=== PATIENT | female | born 1975 | race Caucasian/White ===

== ENCOUNTER 2016-08-09 09:28 | Emergency (ER) | payer OTHER ==
[~2016-08-09] VITALS: Ht 167.6 cm; Wt 75.0 kg
[2016-08-09 09:32] VITALS: BP 138/84; PULSE 88; RESP 16; TEMP 98.2; O2SAT 99
--- NOTE | 2016-08-09 09:49 | PD ---
HPI Chief Complaint: Related Problem Time Seen by Provider: 09:39 Travel History International Travel<30 days: No Contact w/Intl Traveler<30days: No Traveled to known affect area: No History of Present Illness HPI 41-year-old female 1 para 0, 2 months by date, complains of pelvic cramping and vaginal spotting. Patient states that she started having intermittent abdominal cramping and vaginal bleeding for the past 3 weeks. Patient states that she made appointment with OB physician however has not seen the physician. Patient denies any chest pain or shortness of breath. Patient denies any nausea vomiting diarrhea. Patient denies any dysuria or frequency. PFSH Past Medical History ?: Social History Tobacco Use: No Allergies-Medications (Allergen,Severity, Reaction): Coded Allergies: No Known Allergies (Unverified , 08/09/16) Reported Meds & Prescriptions Reported Meds & Active Scripts Active No Active Prescriptions or Reported Medications Review of Systems General / Constitutional: No: Fever Eyes: No: Visual changes HENT: No: Headaches Cardiovascular: No: Chest Pain or Discomfort Respiratory: No: Shortness of Breath Gastrointestinal: No: Abdominal Pain Genitourinary: Positive: Pelvic Pain, Vaginal Bleeding, No: Dysuria Musculoskeletal: No: Pain Skin: No Rash Neurologic: No: Weakness Psychiatric: No: Depression Endocrine: No: Polydipsia Hematologic/Lymphatic: No: Easy Bruising Physical Exam Narrative GENERAL: Well-nourished, well-developed patient. SKIN: Focused skin assessment warm/dry. HEAD: Normocephalic. EYES: No scleral icterus. No injection or drainage. NECK: Supple, trachea midline. No JVD or lymphadenopathy. CARDIOVASCULAR: Regular rate and rhythm without murmurs, gallops, or rubs. RESPIRATORY: Breath sounds equal bilaterally. No accessory muscle use. GASTROINTESTINAL: Abdomen soft, non-tender, nondistended. MUSCULOSKELETAL: No cyanosis, or edema. BACK: Nontender without obvious deformity. No CVA tenderness. 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 Data Data Last Documented VS Vital Signs Date Time Temp Pulse Resp B/P Pulse Ox O2 Delivery O2 Flow Rate FiO2 08/09/16 09:39 16 08/09/16 09:32 98.2 88 138/84 99 Orders Beta Hcg (Quant/Titer) (08/09/16 09:43) Complete Blood Count With Diff (08/09/16 09:43) Basic Metabolic Panel (Bmp) (08/09/16 09:43) Complete Rh (08/09/16 09:43) Urinalysis - C+S If Indicated (08/09/16 09:43) Iv Access Insert/Monitor (08/09/16 09:43) Gc And Chlamydia Pcr (08/09/16 09:47) Wet Prep Profile (08/09/16 09:47) Us Pelvis (Ques Pr/Ect)W Trans (08/09/16 09:50) Rhogam Only (08/09/16 12:35) Labs Laboratory Tests Test 08/09/16 08/09/16 09:45 12:35 White Blood Count 10.0 TH/MM3 Red Blood Count 5.49 MIL/MM3 Hemoglobin 13.6 GM/DL Hematocrit 41.0 % Mean Corpuscular Volume 74.7 FL Mean Corpuscular Hemoglobin 24.8 PG Mean Corpuscular Hemoglobin 33.2 % Concent Red Cell Distribution Width 13.8 % Platelet Count 205 TH/MM3 Mean Platelet Volume 7.9 FL Neutrophils (%) (Auto) 65.6 % Lymphocytes (%) (Auto) 27.7 % Monocytes (%) (Auto) 5.6 % Eosinophils (%) (Auto) 0.6 % Basophils (%) (Auto) 0.5 % Neutrophils # (Auto) 6.6 TH/MM3 Lymphocytes # (Auto) 2.8 TH/MM3 Monocytes # (Auto) 0.6 TH/MM3 Eosinophils # (Auto) 0.1 TH/MM3 Basophils # (Auto) 0.1 TH/MM3 CBC Comment DIFF FINAL Differential Comment Urine Color YELLOW Urine Turbidity CLEAR Urine pH 7.0 Urine Specific [place] 1.012 Urine Protein NEG mg/dL Urine Glucose (UA) NEG mg/dL Urine Ketones NEG mg/dL Urine Occult Blood NEG Urine Nitrite NEG Urine Bilirubin NEG Urine Urobilinogen LESS THAN 2.0 MG/DL Urine Leukocyte Esterase SMALL Urine WBC LESS THAN 1 /hpf Urine Squamous Epithelial <1 /hpf Cells Microscopic Urinalysis Comment CULT NOT INDICATED Sodium Level 137 MEQ/L Potassium Level 3.6 MEQ/L Chloride Level 100 MEQ/L Carbon Dioxide Level 27.0 MEQ/L Anion Gap 10 MEQ/L Blood Urea Nitrogen 8 MG/DL Creatinine 0.66 MG/DL Estimat Glomerular Filtration 100 ML/MIN Rate Random Glucose 121 MG/DL Calcium Level 9.2 MG/DL Human Chorionic Gonadotropin, [address] MIU/ML Quant Blood Type B NEGATIVE Rho(D) Type NEGATIVE Chlamydia trachomatis DNA NOT DETECTED (PCR) Neisseria gonorrhoeae DNA NOT DETECTED (PCR) Blood Bank Comment MDM Medical Decision Making Medical Screen Exam Complete: Yes Emergency Medical Condition: Yes Interpretation(s) 10:39 AM. CBC within normal limit. BMP within normal limit. UA is negative. 1347 PM. Last Impressions Pelvis Ultrasound 08/09/16 0950 Signed Impressions: Service Date/Time: Tuesday, August 09, 2016 12:04 - CONCLUSION: 1. There is a single intrauterine gestation identified with estimated age of 6 weeks and 4 days. Normal heart rate of 176 beats per minute is documented. 2. Dominant cystic lesion in the left ovary measuring 2.1 cm. 3. There are 2 uterine fibroids identified measuring up to 11 mm. Manuelito Dillon MD 1340 7 PM. Beta HCG 08619. Differential Diagnosis Differential diagnosis including cervicitis, threatened AB, incomplete AB, completed AB, ectopic . Narrative Course 41-year-old female with pelvic pain and vaginal spotting. Patient is 2 months by date. Patient's blood type B-. RhoGAM given. Diagnosis Primary Impression: Vaginal bleeding during , antepartum Patient Instructions: General Instructions Additional Instructions: Continue with vitamins. Follow-up with personal physician. Return if increased abdominal pain, pelvic pain, vaginal bleeding. Med/Other Pt SpecificInfo: No Meds Exist/No RX given Scripts No Active Prescriptions or Reported Meds Disposition: 01 DISCHARGE HOME Condition: Stable Richie Blunt MD August 09, 2016 09:49
[2016-08-09 10:06] LABS: AUTOMATED NEUTROPHIL # 6.6 TH/MM3 (1.8-7.7); BASOPHIL # 0.1 TH/MM3 (0-0.2); BASOPHIL % 0.5 % (0.0-2.0); EOSINOPHIL # 0.1 TH/MM3 (0-0.4); EOSINOPHIL % 0.6 % (0.0-4.0); HEMO FLAGS DIFF FINAL; LYMPH % 27.7 % (9.0-44.0); LYMPHOCYTE # 2.8 TH/MM3 (1.0-4.8); MEAN CELL VOLUME 74.7 FL (80.0-100.0); MEAN CORPUSCULAR HEMOGLOBIN 24.8 PG (27.0-34.0); MEAN CORPUSCULAR HGB CONC 33.2 % (32.0-36.0); MONO % 5.6 % (0.0-8.0); NEUT % 65.6 % (16.0-70.0); PLATELET COUNT 205 TH/MM3 (150-450); RED BLOOD COUNT 5.49 MIL/MM3 (4.00-5.30); RED CELL DISTRIBUTION WIDTH 13.8 % (11.6-17.2)
[2016-08-09 10:09] LABS: BLOOD, URINE NEG (NEG); GLUCOSE,URINE NEG (NEG); KETONE, URINE NEG (NEG); NITRITE,URINE NEG (NEG); SQUAMOUS EPITHELIAL CELL URINE <1 /hpf (0-5); URINE COLOR YELLOW (YELLW/STRAW)
[2016-08-09 10:11] LABS: COMMENT (UR) CULT NOT INDICATED; CULTURE IF INDICATED CULT NOT INDICATED
[2016-08-09 10:25] LABS: POTASSIUM 3.6 MEQ/L (3.5-5.1)
--- NOTE | 2016-08-09 13:41 | RADRPT ---
EXAM DATE/TIME: 08/09/2016 12:04 [facility] COMPARISON: No previous studies available for comparison. INDICATIONS : Pelvic spotting. LAB(S): Beta-hC,753 MEDICAL HISTORY : . SURGICAL HISTORY : None. ENCOUNTER: Initial ACUITY: 3 weeks PAIN SCORE: 0/10 LOCATION: Bilateral pelvis MEASUREMENTS: UTERUS: 9.0 x 5.2 x 2.4 cm ENDOMETRIAL STRIPE: 16 mm RIGHT OVARY: 3.4 x 2.5 x 1.5 cm LEFT OVARY: 3.5 x 2.8 x 2.4 cm CROWN RUMP LENGTH: 0.70 cm = 6 WKS 4 DAYS FHR: 176 BPM FINDINGS: UTERUS: There is a single intrauterine gestational sac measuring approximately 2.2 x 2.5 x 0.8 cm. It is loca balaji in the superior aspect of the endometrial cavity. There is a yolk sac and embryo present. [place]-r ump length measurement is 0.7 cm indicate a gestational age of 6 weeks and 4 days. M-mode Doppler doc uments a heart rate of 176 beats per minute. There are 2 hypoechoic solid appearing masses in t he fundal aspect of the uterus measuring 11 mm and 10 mm. RIGHT OVARY: Ovary contains no mass or significant cystic lesion. Follicles are present. LEFT OVARY: There is a dominant cystic lesion that contains a thin peripheral septation measuring 2.1 x 2.2 x 2.0 cm. MISCELLANEOUS: No free fluid. CONCLUSION: 1. There is a single intrauterine gestation identified with estimated age of 6 weeks and 4 days. Norm al heart rate of 176 beats per minute is documented. 2. Dominant cystic lesion in the left ovary measuring 2.1 cm. 3. There are 2 uterine fibroids identified measuring up to 11 mm. Manuelito Dillon MD on August 09, 2016 at 13:36 Board Certified Radiologist. This report was verified electronically.
[2016-08-10 00:19] LABS: CHLAMYDIA PCR NOT DETECTED (NOT DETECT); NEISSERIA PCR NOT DETECTED (NOT DETECT)
[2016-08-25] MEDS ORDERED: PREN29TA PO (11:35)
[2016-08-31] MEDS ORDERED: PREN0.01 PO (09:30)
[2016-09-16] MEDS ORDERED: PREN1CAP33 BUCCAL (16:16)
== END 2016-08-09 14:28 | disposition home or self-care (01) ==
LOC: NEPD 09:28
DX: O20.9 Hemorrhage in early pregnancy, unspecified (principal); R10.2 Pelvic and perineal pain; Z3A.01 Less than 8 weeks gestation of pregnancy
CPT/HCPCS: 76700; 76817; 80048; 81001; 84702; 85025; 86901; 87491; 87591; 90384; J2790

== ENCOUNTER → 2016-08-25 | Outpatient (CLI) | payer OTHER ==
[~2016-08-25] MED LIST: PREN0.01 PO; PREN1CAP33 BUCCAL; PREN29TA PO
== END ==
LOC: HPND 12:55
PROVIDERS: ATTEND Obstetrics & Gynecology
DX: O09.511 Supervision of elderly primigravida, first trimester (principal); Z3A.09 9 weeks gestation of pregnancy
CPT/HCPCS: 76801

== ENCOUNTER → 2016-10-06 | Outpatient (CLI) | payer OTHER ==
[~2016-10-06] MED LIST changes: +BLOOD GLUCOSE T1 TES; +LANC30MI SQ; +PREN1CAP33 PO; +TERC.4%V VAGINAL
== END ==
LOC: CDED 15:45
PROVIDERS: ATTEND Obstetrics & Gynecology
DX: O24.419 Gestational diabetes mellitus in pregnancy, unspecified control (principal)
CPT/HCPCS: 97802

== ENCOUNTER → 2016-11-04 | Outpatient (CLI) | payer BC, OTHER ==
[~2016-11-04] MED LIST changes: +GLYB5TAB3 PO; -PREN1CAP33 BUCCAL; +ZANT150T2 PO
== END ==
LOC: HPND 11:12
PROVIDERS: ATTEND Obstetrics & Gynecology
DX: O09.512 Supervision of elderly primigravida, second trimester (principal); O24.419 Gestational diabetes mellitus in pregnancy, unspecified control
CPT/HCPCS: 76811

== ENCOUNTER → 2016-12-02 | Outpatient (CLI) | payer BC | LOC: HPND 13:22 | PROVIDERS: ATTEND Obstetrics & Gynecology | DX: O24.415 Gestational diabetes mellitus in pregnancy, controlled by oral hypoglycemic drugs (principal); O09.512 Supervision of elderly primigravida, second trimester | CPT/HCPCS: 76816; 76825; 76827; 93325 ==

== ENCOUNTER 2016-12-28 06:30 | Observation (INO) | payer BC ==
[~2016-12-28] VITALS: Ht 167.6 cm; Wt 81.0 kg
[2016-12-28] VITALS (7 sets, daily range): BP systolic 113–135; BP diastolic 69–84; PULSE 84–104; RESP 18; TEMP 97.6–98.8
[2016-12-28] MEDS ORDERED: OXYTOCIN 30 UNITS-500ML PREMIX 500 ML ONE (06:43)
[2016-12-28] MEDS ORDERED: MISOPROSTOL 200 MCG TAB ONE (06:44)
[2016-12-28] MEDS ORDERED: INSULIN HUMAN REGULAR 1,000 UNITS/10 ML VIAL SQ SCH ×2 (09:00→21:00)
[2016-12-28] MEDS: INSULIN HUMAN NPH 1,000 UNITS/10 ML VIAL SQ SCH (09:15)
[2016-12-28] MEDS ORDERED: DEXTROSE (ADULT) 31 GM GEL TUBE PO ONE (11:15)
[2016-12-28 16:00] LABS: HEMOGLOBIN A1a 0.9 %; HEMOGLOBIN A1b 0.8 %; HEMOGLOBIN Ao 86.3 %; HEMOGLOBIN F 0.9 %; HEMOGLOBIN LA1C 1.6 %; HEMOGLOBIN P3 3.3 %
[2016-12-28] MEDS ORDERED: INSULIN HUMAN NPH 1,000 UNITS/10 ML VIAL SQ SCH (21:00)
[2016-12-29 01:17] VITALS: RESP 18
[2016-12-29 01:18] VITALS: BP 111/57; PULSE 76; TEMP 97.7
[2016-12-29 07:55] VITALS: BP 115/69; PULSE 89
[2016-12-29 08:00] VITALS: RESP 18
[2016-12-29] MEDS ORDERED: INSULIN HUMAN REGULAR 1,000 UNITS/10 ML VIAL SQ SCH (09:00)
[2016-12-29] MEDS: INSULIN HUMAN NPH 1,000 UNITS/10 ML VIAL SQ SCH (09:50)
[2016-12-29 11:26] VITALS: BP 117/75; PULSE 92
--- NOTE | 2016-12-29 12:41 | HHI.DCPOC ---
Discharge Care Plan Diagnosis: (1) Gestational diabetes Report Symptoms to Your Doctor -Temperature above 100.5 degrees -Redness, of incision or excessive or foul smelling drainage -Unusual pain or calf pain -Increased vaginal bleeding -Painful or difficulty urinating -Feelings of extreme sadness or anxiety after 2 weeks Goals to Promote Your Health * To prevent worsening of your condition and complications * To maintain your health at the optimal level Directions to Meet Your Goals Take your medications as prescribed Follow your dietary instruction Follow activity as directed Ensure plenty of rest for recovery Drink fluids for hydration Keep your appointments as scheduled Take your immunizations and boosters as scheduled If your symptoms worsen call your PCP, if no PCP go to Urgent Care Center or Emergency Room Smoking is Dangerous to Your Health. Avoid second hand smoke Call the 24-hour crisis hotline for domestic abuse at Amrita Oh MD Dec 29, 2016 12:41
--- NOTE | 2016-12-29 12:44 | PD.OB.ANTE ---
Subjective Diagnosis: (1) Gestational diabetes Diagnosis: Secondary Interval History Pt here for insulin administration..pt underwent diabetic teaching and insulin teaching and feels confident with giving medicine...sugars good level with chosen insulin doses..hga1c at 5.7, antibody screen neg Antepartum ROS: Reports: Other Objective Vital Signs Vital Signs Date Time Temp Pulse Resp B/P (MAP) Pulse Ox O2 Delivery O2 Flow Rate FiO2 12/29/16 11:26 92 117/75 (89) 12/29/16 08:00 18 12/29/16 07:55 89 115/69 (84) 12/29/16 01:18 97.7 12/29/16 01:18 76 111/57 (75) 12/29/16 01:17 18 12/28/16 21:18 97.6 12/28/16 20:33 84 117/69 (85) 12/28/16 20:32 18 12/28/16 16:33 113/77 (89) 12/28/16 16:32 98.8 18 Physical Exam GENERAL: Well-nourished, well-developed patient. CARDIOVASCULAR: Regular rate and rhythm without murmurs, gallops, or rubs. RESPIRATORY: Breath sounds equal bilaterally. No accessory muscle use. ABDOMEN/GI: Abdomen soft, non-tender. Fundus: [-] GENITOURINARY: External Genitalia: intact and normal in appearance Cervix: [-] Dilatation: [-] Effacement: [-] Station: [-] Presentation: [-] Membranes: [-] Uterine Contractions: [-] FHT's: Category: [-] Baseline: [-] Reactive: [-] Variability: [-] Decels: [-] EXTREMITIES: No cyanosis or edema, non-tender, without signs of DVT. Assessment and Plan Assessment and Plan IUP at 27 wks with GDM now on insulin with good control 1. Dc home on insulin 2. fu 1 wk in office Amrita Oh MD Dec 29, 2016 12:44
== END 2016-12-29 14:00 | disposition home or self-care (01) ==
LOC: H2EA 06:30 → INTOOBSV 06:30
PROVIDERS: ADMIT Obstetrics & Gynecology; ATTEND Obstetrics & Gynecology
DX: O24.419 Gestational diabetes mellitus in pregnancy, unspecified control (principal); Z3A.27 27 weeks gestation of pregnancy
CPT/HCPCS: 82948; 83036; 86850; 86900; 86901; 96372; G0378; J1815; J2590

== ENCOUNTER 2017-03-24 23:25 | Inpatient (IN) | payer BC, OTHER ==
[~2017-03-24] VITALS: Ht 167.6 cm; Wt 84.0 kg
[~2017-03-24 23:25] MED LIST changes: -BLOOD GLUCOSE T1 TES; -GLYB5TAB3 PO; -LANC30MI SQ; -PREN0.01 PO; -PREN1CAP33 PO; -TERC.4%V VAGINAL
[2017-03-24] MEDS ORDERED: LACTATED RINGER'S 1000 ML INJ 1,000 ML IV SCH (23:29)
[2017-03-24] MEDS ORDERED: LACTATED RINGER'S 1000 ML INJ 1,000 ML IV PRN (23:29)
[2017-03-24] MEDS ORDERED: CITRIC ACID-SODIUM CITRATE LIQ 30 ML UDC PO SCH (23:30)
[2017-03-24] MEDS ORDERED: LIDOCAINE HCL 1% 50 ML VIAL INFIL PRN (23:30)
[2017-03-24] MEDS ORDERED: LIDOCAINE HCL 1% 50 ML VIAL I-DERMAL PRN (23:30)
[2017-03-24] MEDS ORDERED: OXYTOCIN 30 UNITS-500ML PREMIX 500 ML IV ONE (23:30)
[2017-03-24] MEDS ORDERED: SODIUM CHLORID 0.9% 500 ML INJ 500 ML IV PRN (23:30)
[2017-03-24] MEDS ORDERED: MINERAL OIL 10 ML VIAL TOPICAL PRN (23:30)
[2017-03-24] MEDS ORDERED: fentaNYL 2MCG-BUPIV 0.125% INJ 100 ML ONE (23:34)
[2017-03-24] MEDS ORDERED: ePHEDrine/NS 25 MG/5 ML SYRINGE ONE (23:34)
[2017-03-24] MEDS ORDERED: ONDANSETRON HCL 4 MG/2 ML VIAL ONE (23:35)
--- NOTE | 2017-03-24 23:40 | PD ---
HPI Chief Complaint ctx, LOF Travel History International Travel<30 Days: No Contact w/Intl Traveler<30Days: No Known Affected Area: No History of Present Illness HPI 41-year-old , IUP at 39.1 care complicated by A2 diabetes on insulin, AMA The patient presents complaining of onset of painful contractions about 9 PM she also reports that she had a large gush of fluid at 9 PM. She reports the contractions have increased in intensity and frequency and are now every 2-3 minutes. There are no aggravating or alleviating factors and no attempted treatments. She reports good movement. She denies any vaginal bleeding. Weeks Gestation: 39 Para: 0 : 1 History Past Medical History Medical History: Denies Significant Hx Obstetric History Obstetric History Past Surgical History Surgical History: No Previous Surgery Family History Family History: Negative Social History Alcohol Use: No Tobacco Use: No Substance Abuse: No Allergies-Medications (Allergen,Severity, Reaction): Coded Allergies: No Known Allergies (Unverified , 12/28/16) Home Meds Active Scripts Ranitidine (Zantac) 150 Mg Tab, 150 MG PO BID for Reduce Stomach Acid, #60 TAB 6 Refills Prov:Ingrid Reid [facility] 11/06/16 Vit-Iron Carbonyl ( Plus Iron 29-1 mg) 1 Tab Tab, 1 TAB PO DAILY for Nutritional Supplement, #30 TAB 2 Refills Prov:Kerline Bernard CNM [facility] 08/25/16 Review of Systems Except as stated in HPI: all other systems reviewed are Neg Physical Exam Narrative GENERAL: Well-nourished, well-developed patient. SKIN: Warm and dry. HEAD: Normocephalic and atraumatic. EYES: No scleral icterus. No injection or drainage. ENT: No nasal drainage noted. Mucous membranes pink. Airway patent. NECK: Supple, trachea midline. No JVD. CARDIOVASCULAR: Regular rate and rhythm without murmurs, gallops, or rubs. RESPIRATORY: Deferred BREASTS: Bilateral exam showed no masses , no retractions, no nipple discharge. ABDOMEN/GI: Abdomen soft, non-tender, bowel sounds present, no rebound, no guarding Gravid GENITOURINARY: External Genitalia: intact and normal in appearance. Normal BUS. Grossly normal rugae. No cervical or vaginal masses appreciated. Patient appears to be grossly ruptured. SVE 6-7/complete/-1. FHT's: heart tone baselines in the 120s with moderate long-term variability, good accelerations, no decelerations. This is a reactive NST and category 1 heart rate tracing EXTREMITIES: No cyanosis or edema. BACK: Nontender without obvious deformity. NEUROLOGICAL: Awake and alert. Motor and sensory grossly within normal limits. Five out of 5 muscle strength in all muscle groups. Normal speech. Psychiatric: Grossly normal memory and affect Musculoskeletal: Grossly normal range of motion, gait, muscle strength Data Data Orders Orders Vital Signs (Adult) .ON ADMISSION (03/24/17 23:29) ^ Labor Status (03/24/17:29) ^ Non Stress Test (03/24/17:) Ob (2e) Additional Admit Info (03/24/17:30) Admit To Inpatient (03/24/17 ) Code Status (03/24/17 23:29) Vital Signs (Adult) .Per protocol (03/24/17 23:29) Heart (03/24/17 23:29) Amnioinfusion (03/24/17:29) Urinary Catheter Management .ONCE (03/24/17 23:29) Diet Npo (03/25/17 Breakfast) Lactated Ringer's 1000 Ml Inj (Lr 1000 M (03/24/17 23:29) Lactated Ringer's 1000 Ml Inj (Lr 1000 M (03/24/17 23:29) Sodium Chlorid 0.9% 500 Ml Inj (Ns 500 M (03/24/17 23:30) Sodium Chlor 0.9% 1000 Ml Inj (Ns 1000 M (03/24/17 23:49) Lidocaine 1% Inj (50 Ml) (Xylocaine 1% I (03/24/17 23:30) Citric Acid-Sodium Citrate Liq (Bicitra (03/24/17 23:30) Fentanyl Inj (Fentanyl Inj) (03/24/17 23:30) Fentanyl Inj (Fentanyl Inj) (03/24/17 23:30) Complete Blood Count With Diff (03/24/17 23:29) Hold Clot (03/24/17 23:29) Abo/Rh Blood Type (03/24/17 23:29) Urinalysis - C+S If Indicated (03/24/17 23:29) Drug Screen, Random Urine (03/24/17 23:29) Resp Oxygen Non Rebreathe Mask (03/24/17 ) ^ Epidural / Intrathecal Infus (03/24/17 23:29) Oxytocin 30 Units-500ml Premix (Pitocin (03/24/17 23:30) Lidocaine 1% Inj (50 Ml) (Xylocaine 1% I (03/24/17 23:30) Light Mineral Oil (Muri-Lube Oil) (03/24/17 23:30) Inpatient Certification (03/24/17 ) Hemoglobin (Hgb) A1c (03/24/17 23:31) MDM Plan Assessment/plan: 1. IUP at 39.1 2. Active labor with SROM: Will admit to Dr. Albert, expectant management, epidural for pain management. Discussed with Dr. Huang who is aware and in agreement with plan. Discussed with patient and brief the risks of and risks/indications for delivery. All patient's questions were answered. 3. A2 diabetes: Patient currently on insulin regimen, induction orders included hemoglobin A1c, will order. 4. GBS negative 5. Advanced maternal age 6. well-being: Reassuring testing with reactive NST and category 1 heart rate tracing 7. Rh-: patient is B-, status post Ingrid Vines MD Mar 24, 2017 23:40
[2017-03-24 23:44] VITALS: RESP 20
[2017-03-24 23:45] VITALS: BP 157/98; PULSE 101
[2017-03-24] MEDS ORDERED: SODIUM CHLOR 0.9% 1000 ML INJ 1,000 ML IV PRN (23:49)
[2017-03-24 23:50] LABS: AUTOMATED NEUTROPHIL # 7.8 TH/MM3 (1.8-7.7); BASOPHIL % 0.2 % (0.0-2.0); EOSINOPHIL # 0.1 TH/MM3 (0-0.4); EOSINOPHIL % 0.5 % (0.0-4.0); HEMOGLOBIN 12.7 GM/DL (11.6-15.3); LYMPH % 26.4 % (9.0-44.0); LYMPHOCYTE # 3.1 TH/MM3 (1.0-4.8); MEAN CELL VOLUME 78.4 FL (80.0-100.0); MEAN CORPUSCULAR HEMOGLOBIN 25.4 PG (27.0-34.0); MEAN CORPUSCULAR HGB CONC 32.4 % (32.0-36.0); MEAN PLATELET VOLUME 9.3 FL (7.0-11.0); MONO % 6.1 % (0.0-8.0); MONOCYTE # 0.7 TH/MM3 (0-0.9); NEUT % 66.8 % (16.0-70.0); PLATELET COUNT 168 TH/MM3 (150-450); RED BLOOD COUNT 4.98 MIL/MM3 (4.00-5.30); RED CELL DISTRIBUTION WIDTH 14.2 % (11.6-17.2); WHITE BLOOD COUNT 11.6 TH/MM3 (4.0-11.0)
[2017-03-25] VITALS (57 sets, daily range): BP systolic 112–165; BP diastolic 69–106; PULSE 84–144; RESP 16–20; TEMP 97.5–98.4; O2SAT 96–99
[2017-03-25] MEDS ORDERED: NOVORP2 SQ ×2 (00:47)
[2017-03-25] MEDS ORDERED: NOVONP2 SQ ×2 (00:47)
[2017-03-25] MEDS ORDERED: LIDOCAINE HCL 1% 20 ML VIAL ONE (01:14)
[2017-03-25 01:21] LABS: BILIRUBIN, URINE NEG (NEG); BLOOD, URINE SMALL (NEG); GLUCOSE,URINE NEG (NEG); KETONE, URINE NEG (NEG); MUCUS URINE FEW /lpf (OCC); NITRITE,URINE NEG (NEG); PH, URINE 5.5 (5.0-8.5); SQUAMOUS EPITHELIAL CELL URINE <1 /hpf (0-5); URINE COLOR YELLOW (YELLW/STRAW); URINE LEUKOCYTE ESTERASE NEG (NEG)
--- NOTE | 2017-03-25 02:53 | HHI.HP ---
HPI Chief Complaint LOF and contractions Date Seen: Mar 25, 2017 Time Seen: 23:40 Travel History International Travel<30 Days: No Contact w/Intl Traveler<30Days: No Known Affected Area: No History of Present Illness HPI pt c/o contractions and LOF at 9 pm Weeks Gestation: 39 Para: 0 : 1 History Past Medical History Medical History: Denies Significant Hx Obstetric History Obstetric History A2 GDM Past Surgical History Narrative Surgical none Surgical History: No Previous Surgery Family History Family History: Negative Social History Alcohol Use: No Tobacco Use: No Substance Abuse: No Allergies-Medications (Allergen,Severity, Reaction): Coded Allergies: No Known Allergies (Unverified , 12/28/16) Home Meds Active Scripts Ranitidine (Zantac) 150 Mg Tab, 150 MG PO BID for Reduce Stomach Acid, #60 TAB 6 Refills Prov:Ingrid Reid [facility] 11/06/16 Vit-Iron Carbonyl ( Plus Iron 29-1 mg) 1 Tab Tab, 1 TAB PO DAILY for Nutritional Supplement, #30 TAB 2 Refills Prov:Kerline Bernard CNM [facility] 08/25/16 Reported Medications Insulin Human Regular Inj (Novolin R Inj) 1,000 Unit/10 Ml Vial, 7 UNITS SQ AC DINNER for Blood Sugar Management, #1 INJECTION 0 Refills 03/25/17 Insulin Human NPH Inj (Novolin N Inj) 1,000 Unit/10 Ml Vial, 14 UNITS SQ AC DINNER for Blood Sugar Management, #10 ML 0 Refills 03/25/17 Insulin Human Regular Inj (Novolin R Inj) 1,000 Unit/10 Ml Vial, 4 UNITS SQ AC BREAKFAST for Blood Sugar Management, #1 INJECTION 0 Refills 03/25/17 Insulin Human NPH Inj (Novolin N Inj) 1,000 Unit/10 Ml Vial, 24 UNITS SQ AC BREAKFAST for Blood Sugar Management, #10 ML 0 Refills 03/25/17 Review of Systems Except as stated in HPI: all other systems reviewed are Neg Physical Exam Vital Signs Date Time Temp Pulse Resp B/P (MAP) Pulse Ox O2 Delivery O2 Flow Rate FiO2 03/25/17 02:06 97.5 18 03/25/17 02:00 110 128/92 (104) 03/25/17 02:00 111 03/25/17 01:55 105 03/25/17 01:50 107 03/25/17 01:46 103 128/90 (103) 03/25/17 01:45 106 03/25/17 01:30 85 03/25/17 01:30 88 120/76 (91) 03/25/17 01:25 84 03/25/17 01:20 91 03/25/17 01:15 88 131/85 (100) 03/25/17 01:15 87 03/25/17 01:05 91 03/25/17 01:00 98 03/25/17 01:00 94 16 118/80 (93) 03/25/17 00:55 95 130/81 (97) 03/25/17 00:55 96 03/25/17 00:50 96 123/86 (98) 03/25/17 00:50 90 03/25/17 00:45 97 133/80 (97) 03/25/17 00:45 99 03/25/17 00:40 96 03/25/17 00:40 97 123/79 (94) 03/25/17 00:36 18 03/25/17 00:35 97.6 03/25/17 00:35 102 129/84 (99) 03/25/17 00:35 101 03/25/17 00:30 105 03/25/17 00:30 103 132/85 (101) 03/25/17 00:26 101 146/88 (107) 03/25/17 00:25 104 03/25/17 00:20 99 03/25/17 00:20 105 165/106 (125) 03/25/17 00:16 105 155/101 (119) 03/25/17 00:15 105 03/25/17 00:10 98 138/88 (105) 03/25/17 00:10 99 03/24/17 23:45 101 157/98 (117) 03/24/17 23:44 20 Narrative GENERAL: Well-nourished, well-developed patient. SKIN: Warm and dry. HEAD: Normocephalic and atraumatic. EYES: No scleral icterus. No injection or drainage. ENT: No nasal drainage noted. Mucous membranes pink. Airway patent. NECK: Supple, trachea midline. No JVD. CARDIOVASCULAR: Regular rate and rhythm without murmurs, gallops, or rubs. RESPIRATORY: Breath sounds equal bilaterally. No accessory muscle use. BREASTS: Bilateral exam showed no masses , no retractions, no nipple discharge. ABDOMEN/GI: Abdomen soft, non-tender, bowel sounds present, no rebound, no guarding Gravid to [-] weeks size Fundal Height: [-] GENITOURINARY: External Genitalia: intact and normal in appearance BUS glands: [-] Cervix: [-] 10 Dilatation: [-] Effacement: [-] Station: [-] Presentation: [-] Membranes: [intact or ruptured] ruptured Uterine Contractions: [-] FHT's: Category: [-] 1 Baseline: [-] Reactive: [-] Variability: [-] Decels: [-] EXTREMITIES: No cyanosis or edema. BACK: Nontender without obvious deformity. No CVA tenderness. NEUROLOGICAL: Awake and alert. Motor and sensory grossly within normal limits. Five out of 5 muscle strength in all muscle groups. Normal speech. Caprini VTE Risk Assessment Caprini VTE Risk Assessment: No/Low Risk (score <= 1) Caprini Risk Assessment Model Point Value = 1 Point Value = 2 Point Value = 3 Point Value = 5 Age 41-60 Minor surgery BMI > 25 kg/m2 Swollen legs Varicose veins or History of unexplained or recurrent spontaneous Oral contraceptives or hormone replacement Sepsis (< 1 month) Serious lung disease, including pneumonia (< 1 month) Abnormal pulmonary function Acute myocardial infarction Congestive heart failure (< 1 month) History of inflammatory bowel disease Medical patient at bed rest Age 61-74 Arthroscopic surgery Major open surgery (> 45 min) Laparoscopic surgery (> 45 min) Malignancy Confined to bed (> 72 hours) Immobilizing plaster cast Central venous access Age >= 75 History of VTE Family history of VTE Factor V Leiden Prothrombin [id number] Lupus anticoagulant Anticardiolipin antibodies Elevated serum homocysteine Heparin-induced thrombocytopenia Other congenital or acquired thrombophilia Stroke (< 1 month) Elective arthroplasty Hip, pelvis, or leg fracture Acute spinal cord injury (< 1 month) Prophylaxis Regimen Total Risk Factor Score Risk Level Prophylaxis Regimen 0-1 Low Early ambulation 2 Moderate Order ONE of the following: *Sequential Compression Device (SCD) *Heparin 5000 units SQ BID 3-4 Higher Order ONE of the following medications: *Heparin 5000 units SQ TID *Enoxaparin/Lovenox 40 mg SQ daily (WT < 150 kg, CrCl > 30 mL/min) *Enoxaparin/Lovenox 30 mg SQ daily (WT < 150 kg, CrCl > 10-29 mL/min) *Enoxaparin/Lovenox 30 mg SQ BID (WT < 150 kg, CrCl > 30 mL/min) AND/OR *Sequential Compression Device (SCD) 5 or more Highest Order ONE of the following medications: *Heparin 5000 units SQ TID (Preferred with Epidurals) *Enoxaparin/Lovenox 40 mg SQ daily (WT < 150 kg, CrCl > 30 mL/min) *Enoxaparin/Lovenox 30 mg SQ daily (WT < 150 kg, CrCl > 10-29 mL/min) *Enoxaparin/Lovenox 30 mg SQ BID (WT < 150 kg, CrCl > 30 mL/min) AND *Sequential Compression Device (SCD) Data Data Orders Orders Vital Signs (Adult) .ON ADMISSION (03/24/17 23:29) ^ Labor Status (03/24/17 23:29) ^ Non Stress Test (03/24/17 23:29) Ob (2e) Additional Admit Info (03/24/17 23:30) Admit To Inpatient (03/24/17 ) Code Status (03/24/17 23:29) Vital Signs (Adult) .Per protocol (03/24/17 23:29) Heart (03/24/17 23:29) Amnioinfusion (03/24/17 23:29) Urinary Catheter Management .ONCE (03/24/17 23:29) Diet Npo (03/25/17 Breakfast) Lactated Ringer's 1000 Ml Inj (Lr 1000 M (03/24/17 23:29) Lactated Ringer's 1000 Ml Inj (Lr 1000 M (03/24/17 23:29) Sodium Chlorid 0.9% 500 Ml Inj (Ns 500 M (03/24/17 23:30) Sodium Chlor 0.9% 1000 Ml Inj (Ns 1000 M (03/24/17 23:49) Lidocaine 1% Inj (50 Ml) (Xylocaine 1% I (03/24/17 23:30) Citric Acid-Sodium Citrate Liq (Bicitra (03/24/17 23:30) Fentanyl Inj (Fentanyl Inj) (03/24/17 23:30) Fentanyl Inj (Fentanyl Inj) (03/24/17 23:30) Complete Blood Count With Diff (03/24/17 23:29) Hold Clot (03/24/17 23:29) Abo/Rh Blood Type (03/24/17 23:29) Urinalysis - C+S If Indicated (03/24/17 23:29) Drug Screen, Random Urine (03/24/17 23:29) Resp Oxygen Non Rebreathe Mask (03/24/17 ) ^ Epidural / Intrathecal Infus (03/24/17 23:29) Oxytocin 30 Units-500ml Premix (Pitocin (03/24/17 23:30) Lidocaine 1% Inj (50 Ml) (Xylocaine 1% I (03/24/17 23:30) Light Mineral Oil (Muri-Lube Oil) (03/24/17 23:30) Inpatient Certification (03/24/17 ) Hemoglobin (Hgb) A1c (03/24/17 23:31) Fentanyl 2mcg-Bupiv 0.125% Inj (Fentanyl (03/24/17 23:34) Ephedrine/Ns 25 Mg/5 Ml Syr (Ephedrine/N (03/24/17 23:34) Ondansetron Inj (Zofran Inj) (03/24/17 23:35) ^ Place On Chart (03/25/17 ) ^ Medication Indications (03/25/17 ) Consent (03/25/17 ) ^ No Systemic Narcotics (03/25/17 ) ^ Call Anesthesiologist (03/25/17 ) ^ Discontinue Epidural Cathete (03/25/17 ) Anticoagulant Alert (03/25/17 ) ^ Epidural Alert (03/25/17 ) Lidocaine 1% Inj (Xylocaine 1% Inj) (03/25/17 01:14) Labs Laboratory Tests Test 03/24/17 23:25 03/25/17 01:00 White Blood Count 11.6 Red Blood Count 4.98 Hemoglobin 12.7 Hematocrit 39.0 Mean Corpuscular Volume 78.4 Mean Corpuscular Hemoglobin 25.4 Mean Corpuscular Hemoglobin Concent 32.4 Red Cell Distribution Width 14.2 Platelet Count 168 Mean Platelet Volume 9.3 Neutrophils (%) (Auto) 66.8 Lymphocytes (%) (Auto) 26.4 Monocytes (%) (Auto) 6.1 Eosinophils (%) (Auto) 0.5 Basophils (%) (Auto) 0.2 Neutrophils # (Auto) 7.8 Lymphocytes # (Auto) 3.1 Monocytes # (Auto) 0.7 Eosinophils # (Auto) 0.1 Basophils # (Auto) 0.0 CBC Comment DIFF FINAL Differential Comment Urine Color YELLOW Urine Turbidity CLEAR Urine pH 5.5 Urine Specific [place] 1.017 Urine Protein 30 Urine Glucose (UA) NEG Urine Ketones NEG Urine Occult Blood SMALL Urine Nitrite NEG Urine Bilirubin NEG Urine Urobilinogen LESS THAN 2.0 Urine Leukocyte Esterase NEG Urine RBC 15 Urine WBC 1 Urine Squamous Epithelial Cells <1 Urine Mucus FEW Microscopic Urinalysis Comment CULT NOT INDICATED Urine Opiates Screen NEG Urine Barbiturates Screen NEG Urine Amphetamines Screen NEG Urine Benzodiazepines Screen NEG Urine Cocaine Screen NEG Urine Cannabinoids Screen NEG Assessment/Plan Problem List: (1) ICD Codes: Z34.90 - Encounter for supervision of normal , unspecified , unspecified trimester Plan: GBS neg complete and pushing (2) Gestational diabetes ICD Codes: O24.419 - Gestational diabetes mellitus in , unspecified control Plan: follow Jolly Cavazos MD Mar 25, 2017 02:53
--- NOTE | 2017-03-25 04:18 | PD.OB.DELI ---
Weeks gestation: 39 Pt started active labor?: Yes Medical induction of labor?: No Artificial rupture of membrane: No Anesthesia: Epidural Episiotomy: None Vaginal Delivery: Normal Presentation: Occiput anterior Nuchal Cord: None Delayed cord clamping (45 sec): Yes : Male Delivery date: Mar 25, 2017 Delivery time: 03:33 One Minute : 8 Five Minute : 9 Weight: 6-7 Placenta: Manual removal, Intact, 3 vessel cord Laceration: Perineal laceration, 3 deg Repair: Chromic running (anal sphincter repaired with 2-0 chromic in interrupted fashion. perineum and vagina repaired with 2-0 and 3-0 chromic in running fashion) Estimated blood loss: 400 ml Jolly Albert MD Mar 25, 2017 04:18
[2017-03-25] MEDS ORDERED: oxyCODONE/ACETAMINOPHEN 5 MG/325 MG TAB PO PRN (04:30)
[2017-03-25] MEDS ORDERED: ZOLPIDEM TARTRATE 5 MG TAB PO PRN (04:30)
[2017-03-25] MEDS ORDERED: SODIUM CHLORIDE 0.9% FLUSH 10 ML FLUSH IV FLUSH PRN (04:30)
[2017-03-25] MEDS ORDERED: OXYTOCIN 10 UNIT/ML AMP XX PRN (04:30)
[2017-03-25] MEDS ORDERED: ACETAMINOPHEN 325 MG TAB PO PRN (04:30)
[2017-03-25] MEDS ORDERED: OXYTOCIN 30 UNITS-500ML PREMIX 500 ML IV SCH (04:30)
[2017-03-25] MEDS ORDERED: ALUMINUM/MAGNESIUM/SIMETH 30 ML CUP PO PRN (04:30)
[2017-03-25] MEDS ORDERED: OXYTOCIN 30 UNITS-500ML PREMIX 500 ML IV ONE (04:30)
[2017-03-25] MEDS ORDERED: ONDANSETRON ODT 4 MG TAB PO PRN (04:30)
[2017-03-25 06:03] LABS: AUTOMATED NEUTROPHIL # 12.1 TH/MM3 (1.8-7.7); BASOPHIL % 0.2 % (0.0-2.0); EOSINOPHIL % 0.1 % (0.0-4.0); HEMATOCRIT 32.2 % (35.0-46.0); HEMOGLOBIN 10.7 GM/DL (11.6-15.3); LYMPH % 11.9 % (9.0-44.0); LYMPHOCYTE # 1.7 TH/MM3 (1.0-4.8); MEAN CORPUSCULAR HEMOGLOBIN 26.3 PG (27.0-34.0); MEAN CORPUSCULAR HGB CONC 33.3 % (32.0-36.0); MEAN PLATELET VOLUME 9.6 FL (7.0-11.0); MONO % 5.4 % (0.0-8.0); MONOCYTE # 0.8 TH/MM3 (0-0.9); NEUT % 82.4 % (16.0-70.0); PLATELET COUNT 161 TH/MM3 (150-450); RED BLOOD COUNT 4.07 MIL/MM3 (4.00-5.30); RED CELL DISTRIBUTION WIDTH 14.7 % (11.6-17.2); WHITE BLOOD COUNT 14.6 TH/MM3 (4.0-11.0)
[2017-03-25] MEDS: BENZOCAINE 20% TOPICAL SPRAY 60 ML CAN TOPICAL PRN (06:46)
[2017-03-25] MEDS: WITCH HAZEL 50%/GLYCERIN 12.5% 40 PAD JAR TOPICAL PRN (06:46)
[2017-03-25] MEDS: oxyCODONE/ACETAMINOPHEN 5 MG/325 MG TAB PO PRN ×2 (06:47→13:25)
--- NOTE | 2017-03-25 08:04 | HHI.OB ---
Subjective Post Day: 0 Remarks Pt doing well, slight perineal pain Objective Vitals/I&O Vital Signs Date Time Temp Pulse Resp B/P (MAP) Pulse Ox O2 Delivery O2 Flow Rate FiO2 03/25/17 06:15 18 03/25/17 06:00 108 99 03/25/17 06:00 100 122/81 (95) 03/25/17 05:55 102 99 03/25/17 05:52 18 03/25/17 05:50 109 98 03/25/17 05:45 100 132/82 (99) 99 03/25/17 05:45 101 03/25/17 05:40 114 98 03/25/17 05:35 116 98 03/25/17 05:30 112 98 03/25/17 05:30 116 119/74 (89) 03/25/17 05:25 112 97 03/25/17 05:16 129 126/89 (101) 03/25/17 05:15 97.8 18 03/25/17 05:15 131 121/91 (101) 03/25/17 05:00 134 124/82 (96) 03/25/17 05:00 18 03/25/17 04:45 16 03/25/17 04:45 133 145/90 (108) 03/25/17 04:30 16 03/25/17 04:30 132 129/87 (101) 03/25/17 04:15 108 18 129/84 (99) 03/25/17 04:00 108 130/85 (100) 03/25/17 03:48 18 03/25/17 03:45 120 129/85 (100) 03/25/17 03:20 115 03/25/17 03:15 134 129/83 (98) 03/25/17 03:15 144 03/25/17 02:55 111 03/25/17 02:50 108 03/25/17 02:45 106 03/25/17 02:45 122 144/90 (108) 03/25/17 02:40 116 03/25/17 02:35 96 03/25/17 02:30 98 03/25/17 02:30 105 143/84 (103) 03/25/17 02:25 112 03/25/17 02:20 104 03/25/17 02:15 112 144/82 (102) 03/25/17 02:15 111 03/25/17 02:06 97.5 18 03/25/17 02:00 110 128/92 (104) 03/25/17 02:00 111 03/25/17 01:55 105 03/25/17 01:50 107 03/25/17 01:46 103 128/90 (103) 03/25/17 01:45 106 03/25/17 01:30 85 03/25/17 01:30 88 120/76 (91) 03/25/17 01:25 84 03/25/17 01:20 91 03/25/17 01:15 88 131/85 (100) 03/25/17 01:15 87 03/25/17 01:05 91 03/25/17 01:00 98 03/25/17 01:00 94 16 118/80 (93) 03/25/17 00:55 95 130/81 (97) 03/25/17 00:55 96 03/25/17 00:50 96 123/86 (98) 03/25/17 00:50 90 03/25/17 00:45 97 133/80 (97) 03/25/17 00:45 99 03/25/17 00:40 96 03/25/17 00:40 97 123/79 (94) 03/25/17 00:36 18 03/25/17 00:35 97.6 03/25/17 00:35 102 129/84 (99) 03/25/17 00:35 101 03/25/17 00:30 105 03/25/17 00:30 103 132/85 (101) 03/25/17 00:26 101 146/88 (107) 03/25/17 00:25 104 03/25/17 00:20 99 03/25/17 00:20 105 165/106 (125) 03/25/17 00:16 105 155/101 (119) 03/25/17 00:15 105 03/25/17 00:10 98 138/88 (105) 03/25/17 00:10 99 03/24/17 23:45 101 157/98 (117) 03/24/17 23:44 20 Objective Remarks GENERAL: Well-nourished, well-developed patient. CARDIOVASCULAR: Regular rate and rhythm without murmurs, gallops, or rubs. RESPIRATORY: Breath sounds equal bilaterally. No accessory muscle use. ABDOMEN/GI: Abdomen soft, non-tender. Fundus: Firm, non-tender at umbilicus. GENITOURINARY: Light to moderate bleeding. EXTREMITIES: No cyanosis or edema, non-tender, without signs of DVT. Medications and IVs Current Medications Medications (Trade) Dose Ordered Sig/Arnav Route Start Time Stop Time Status Last Admin (Pitocin Inj) 20 units UNSCH X1 PRN XX 03/25/17 04:30 03/26/17 04:29 (NS Flush) 2 ml BID IV FLUSH 03/25/17 09:00 (NS Flush) 2 ml UNSCH PRN IV FLUSH 03/25/17 04:30 Oxytocin 500 ml @ 100 mls/hr CONTINUOUS IV 03/25/17 04:30 03/25/17 09:29 (Tylenol) 650 mg Q4H PRN PO 03/25/17 04:30 (Motrin) 800 mg Q8H PRN PO 03/25/17 04:30 (Percocet 5-325 Mg) 1 tab Q4H PRN PO 03/25/17 04:30 (Percocet 5-325 Mg) 2 tab Q4H PRN PO 03/25/17 04:30 03/25/17 06:47 (Americaine 20% Top Spr) 1 spray Q4H PRN TOPICAL 03/25/17 04:30 03/25/17 06:46 (Tucks Pads) 1 applic QID PRN TOPICAL 03/25/17 04:30 03/25/17 06:46 (Judy-Colace) 2 tab Q12H PRN PO 03/25/17 04:30 (Ambien) 5 mg HS PRN PO 03/25/17 04:30 (M-M-R Ii Inj) 0.5 ml ONCE ONCE SQ 03/25/17 16:00 03/25/17 16:01 (Boostrix Inj) 0.5 ml ONCE ONCE IM 03/25/17 16:00 03/25/17 16:01 (Mag-Al Plus Susp Liq) 15 ml Q8H PRN PO 03/25/17 04:30 (Zofran Odt) 4 mg Q6H PRN PO 1/11/18 04:30 Assessment/Plan Problem List: (1) ICD Codes: Z34.90 - Encounter for supervision of normal , unspecified , unspecified trimester Plan: GBS neg complete and pushing (2) Gestational diabetes ICD Codes: O24.419 - Gestational diabetes mellitus in , unspecified control Plan: follow bs Assessment and Plan PPD# 0 s/p , gestational diabetes controlled with insulin, doing well..will check sugar levels, no inuslin today Discharge Planning plan for dc next 1-2 dys Amrita Oh MD Mar 25, 2017 08:04
[2017-03-25] MEDS: DOCUSATE SODIUM 50 MG/SENNA 8.6 MG TAB PO PRN (08:49)
[2017-03-25] MEDS: IBUPROFEN 800 MG TAB PO PRN ×2 (08:49→20:06)
[2017-03-25] MEDS ORDERED: SODIUM CHLORIDE 0.9% FLUSH 10 ML FLUSH IV FLUSH SCH (09:00)
[2017-03-25 11:32] LABS: HEMOGLOBIN A1C 5.9 % (4.3-6.0)
[2017-03-25] MEDS ORDERED: DIPHTH/TETANUS/ACEL PERTUSSIS (BOOSTER) 0.5 ML VIAL/PFS IM ONE (16:00)
[2017-03-25] MEDS ORDERED: MEASLES, MUMPS, RUBELLA VACCINE 0.5 ML VIAL SQ ONE (16:00)
--- NOTE | 2017-03-25 18:19 | EKG ---
Date Performed: 03/25/2017 Time Performed: 05:45:46 PTAGE: 42 years EKG: SINUS TACHYCARDIA ABNORMAL RHYTHM ECG NO PREVIOUS TRACING DOCTOR: Cordelia Reardon Interpretating Date/Time 03/25/2017 18:18:30
[2017-03-26] MEDS: IBUPROFEN 800 MG TAB PO PRN ×2 (07:27→15:44)
[2017-03-26] MEDS: WITCH HAZEL 50%/GLYCERIN 12.5% 40 PAD JAR TOPICAL PRN (07:28)
[2017-03-26] MEDS: BENZOCAINE 20% TOPICAL SPRAY 60 ML CAN TOPICAL PRN (07:28)
[2017-03-26] MEDS: DOCUSATE SODIUM 50 MG/SENNA 8.6 MG TAB PO PRN (07:28)
[2017-03-26 08:00] VITALS: BP 134/93; PULSE 114; RESP 18; TEMP 97.6; O2SAT 97
--- NOTE | 2017-03-26 08:17 | HHI.DCPOC ---
Discharge Care Plan Report Symptoms to Your Doctor -Temperature above 100.5 degrees -Redness, of incision or excessive or foul smelling drainage -Unusual pain or calf pain -Increased vaginal bleeding -Painful or difficulty urinating -Feelings of extreme sadness or anxiety after 2 weeks Goals to Promote Your Health * To prevent worsening of your condition and complications * To maintain your health at the optimal level Directions to Meet Your Goals Take your medications as prescribed Follow your dietary instruction Follow activity as directed Ensure plenty of rest for recovery Drink fluids for hydration Keep your appointments as scheduled Take your immunizations and boosters as scheduled If your symptoms worsen call your PCP, if no PCP go to Urgent Care Center or Emergency Room Smoking is Dangerous to Your Health. Avoid second hand smoke Call the 24-hour crisis hotline for domestic abuse at Amrita Oh MD Mar 26, 2017 08:17
[2017-03-26] MEDS ORDERED: IBUP1TAB7 PO (08:19)
--- NOTE | 2017-03-26 08:21 | HHI.DS ---
Admission Date Mar 24, 2017 at 23:30 Discharge Date: Mar 26, 2017 Admitting Diagnosis IUP at 39 wks in labor with gdm on isulin Diagnosis: Delivery Date: Mar 25, 2017 Vaginal Delivery: Normal Infant: Male Brief History pt c/o contractions and LOF at 9 pm Pt Condition on Discharge: Good Discharge Disposition: Discharge Home Discharge Instructions Diet Instructions: As Tolerated, No Restrictions Activities You Can Perform: Pelvic Rest Amrita Oh MD Mar 26, 2017 08:21
== END 2017-03-26 18:17 | disposition home or self-care (01) | DRG 767 ==
LOC: HOBED 23:25 → H2EB 23:30 → H1EA 03-25 06:13
PROVIDERS: ADMIT Obstetrics & Gynecology; ATTEND Obstetrics & Gynecology
PROC: 10E0XZZ Delivery of Products of Conception, External Approach (ICD-10-PCS; principal; 2017-03-25)
PROC: 10D17Z9 Manual Extraction of Products of Conception, Retained, Via Natural or Artificial Opening (ICD-10-PCS; 2017-03-25)
PROC: 0DQR0ZZ Repair Anal Sphincter, Open Approach (ICD-10-PCS; 2017-03-25)
PROC: 0KQM0ZZ Repair Perineum Muscle, Open Approach (ICD-10-PCS; 2017-03-25)
DX: O24.424 Gestational diabetes mellitus in childbirth, insulin controlled (principal); O70.20 Third degree perineal laceration during delivery, unspecified; Z37.0 Single live birth; Z3A.39 39 weeks gestation of pregnancy
CPT/HCPCS: 80307; 81001; 82948; 83036; 85025; 86900; 86901; 90715; 93005; J2405; J2590; J3010